=== PATIENT | male | born 1945 | race Caucasian/White ===

== ENCOUNTER 2018-06-19 16:57 | Emergency (ER) | payer OTHER ==
[~2018-06-19] VITALS: Ht 167.6 cm; Wt 90.7 kg
[~2018-06-19 16:57] MED LIST: ENABLEX15 MG PO; FINASTERIDE5 MG; KEFLEX500 MG PO; LISINOPRIL20 MG PO; MEGESTROL40 MG/1 M1 PO; NORCO 5-325 TA1 EACH PO; NORVASC 5 MG TAB5 MG PO; TAMSULOSIN HCL0.4 M1 PO; TRIAMTERENE-HC1 EAC1 PO; URINOZINC; URINOZINC PROS100 MG
[2018-06-19] MEDS ORDERED: NEXIUM40 MG PO (17:21)
[2018-06-19] MEDS ORDERED: CRESTOR10 MG PO (17:21)
[2018-06-19] MEDS ORDERED: ALLOPURINOL 10100 M1 PO (17:22)
[2018-06-19] MEDS ORDERED: MAXZIDE-25 MG1 EACH PO (17:22)
[2018-06-19 18:01] VITALS: BP 164/90
== END 2018-06-19 18:02 | disposition home or self-care (01) ==
LOC: M.ERS 16:57
DX: S01.01XA Laceration without foreign body of scalp, initial encounter (principal); I10 Essential (primary) hypertension; N40.0 Benign prostatic hyperplasia without lower urinary tract symptoms; Z85.46 Personal history of malignant neoplasm of prostate; Z88.0 Allergy status to penicillin; Z88.2 Allergy status to sulfonamides; Z88.5 Allergy status to narcotic agent; Z88.8 Allergy status to other drugs, medicaments and biological substances; W19.XXXA Unspecified fall, initial encounter; Y93.89 Activity, other specified; Y92.89 Other specified places as the place of occurrence of the external cause; Y99.8 Other external cause status

== ENCOUNTER 2018-06-26 18:13 | Emergency (ER) | payer OTHER ==
[~2018-06-26] VITALS: Ht 167.6 cm; Wt 95.7 kg
[~2018-06-26 18:13] MED LIST changes: +ALLOPURINOL 10100 M1 PO; +CRESTOR10 MG PO; +MAXZIDE-25 MG1 EACH PO; +NEXIUM40 MG PO
[2018-06-26 18:25] VITALS: BP 147/88
== END 2018-06-26 18:47 | disposition home or self-care (01) ==
LOC: M.ERS 18:13
DX: S01.81XD Laceration without foreign body of other part of head, subsequent encounter (principal); I10 Essential (primary) hypertension; Z88.6 Allergy status to analgesic agent; Z88.0 Allergy status to penicillin; Z88.2 Allergy status to sulfonamides; Z88.8 Allergy status to other drugs, medicaments and biological substances; Z85.46 Personal history of malignant neoplasm of prostate; X58.XXXD Exposure to other specified factors, subsequent encounter

== ENCOUNTER 2019-12-02 14:57 | Inpatient (IN) | payer OTHER ==
[~2019-12-02] VITALS: Ht 167.6 cm; Wt 97.1 kg
[2019-12-02 15:07] VITALS: BP 148/82
[2019-12-02 15:29] LABS: ABSOLUTE EOSINOPHILS 0.4 thou/uL (0.0-0.7); ABSOLUTE LYMPHOCYTES 1.2 thou/uL (0.8-5.3); ABSOLUTE MONOCYTES 0.5 thou/uL (0.0-1.2); ABSOLUTE NEUTROPHILS 3.7 thou/uL (1.6-8.1); BASOPHILS 0.7 %; EOSINOPHILS 6.2 %; HEMATOCRIT 40.9 % (42.0-52.0); HEMOGLOBIN 14.2 gm/dL (14.0-18.0); LYMPHOCYTES 21.2 %; MCH 32.9 pg (26.0-34.0); MCHC 34.6 g/dL (28.0-37.0); MONOCYTES 8.5 %; MPV 10.2 fl. (7.2-11.1); NUCLEATED RBCS 0 /100WBC; PLATELET COUNT* 188 thou/uL (150-400); POLYS 63.4 %; RBC 4.31 mil/uL (4.50-6.00); RDW-CV 13.5 % (10.5-14.5); WBC 5.8 thou/uL (4.0-11.0)
[2019-12-02 15:34] LABS: BE 1.2 mmol/L (-2 to +3); PCO2 39.5 mmHg (35.0-45.0); PO2 98.9 mmHg (75.0-100.0); pH 7.428 (7.340-7.450)
[2019-12-02 15:39] LABS: APTT 27.3 Seconds (25.0-31.3); CALCIUM 8.4 mg/dL (8.5-10.1); INR 1.1; POTASSIUM 4.1 mmol/L (3.5-5.1)
[2019-12-02 15:49] LABS: ALBUMIN 3.2 g/dL (3.4-5.0); TOTAL BILIRUBIN 0.3 mg/dL (<0.1-1.0); TOTAL PROTEIN 6.8 g/dL (6.4-8.2)
[2019-12-02 17:41] VITALS: BP 161/90
[2019-12-02 18:40] VITALS: BP 164/100
--- NOTE | 2019-12-02 19:03 | NUR ---
PT ADMITTED TO ROOM 105 AROUND 1800. TELE SR WITH BBB. VSS. PT HAS COVID PENDING TEST. IN ENHANCED PRECAUTIONS. NO CONCERNS AT THIS TIME. CLWR. WCTM.
[2019-12-02 20:15] VITALS: BP 170/85
[2019-12-02] MEDS ORDERED: NORVASC 2.5 MG2.5 M1 PO (20:36)
[2019-12-02] MEDS ORDERED: URINOZINC PROS1 EACH PO (20:38)
[2019-12-02] MEDS ORDERED: FAMOTIDINE 20 M20 MG PO (21:04)
[2019-12-02] MEDS ORDERED: COZAAR 25 MG TA25 M2 PO (21:05)
[2019-12-02] MEDS ORDERED: CLARITIN10 M1 PO (21:06)
[2019-12-03] VITALS: BP 160/87
[2019-12-03 04:00] VITALS: BP 150/90
[2019-12-03 04:11] LABS: ALBUMIN 3.1 g/dL (3.4-5.0); CALCIUM 8.2 mg/dL (8.5-10.1); CREATININE 1.2 mg/dL (0.6-1.3); PHOSPHORUS* 3.5 mg/dL (2.5-4.9); POTASSIUM 3.8 mmol/L (3.5-5.1)
--- NOTE | 2019-12-03 04:39 | NUR ---
PT SLEPT MOST OF SHIFT. ASSESSMENT DOCUMENTED. MEDS GIVEN PER E-MAR. IV PATNET. NO REPORTS OF PAIN OR NAUSEA THIS SHIFT. PT ON 2L NC THIS SHIFT. PT EDUCATED TO VOID PER URINAL AND REPORT OUTPUT. ISOLATION MAINTAINED. WILL CONTINUE WITH PLAN OF CARE.
[2019-12-03 05:54] LABS: PLATELET COUNT* ND thou/uL (150-400)
[2019-12-03 05:59] LABS: RBC ND mil/uL (4.50-6.00)
[2019-12-03 06:00] LABS: HEMATOCRIT ND % (42.0-52.0); HEMOGLOBIN ND gm/dL (14.0-18.0)
[2019-12-03 06:01] LABS: MCV ND fL (80.0-100.0)
[2019-12-03 06:03] LABS: MCH ND pg (26.0-34.0); MCHC ND g/dL (28.0-37.0)
[2019-12-03 06:04] LABS: RDW-CV ND % (10.5-14.5)
[2019-12-03 06:05] LABS: MPV ND fl. (7.2-11.1); WBC ND thou/uL (4.0-11.0)
[2019-12-03 06:33] LABS: HEMATOCRIT 43.4 % (42.0-52.0); HEMOGLOBIN 14.8 gm/dL (14.0-18.0); MCH 32.4 pg (26.0-34.0); MCHC 34.1 g/dL (28.0-37.0); MCV 95.2 fL (80.0-100.0); MPV 11.2 fl. (7.2-11.1); RBC 4.56 mil/uL (4.50-6.00); RDW-CV 13.9 % (10.5-14.5)
[2019-12-03 07:09] LABS: CHOLESTEROL 146 mg/dL (<200); HDL CHOLESTEROL 33 mg/dL (>40); LDL CHOLESTEROL 97 mg/dL (<100); TC:HDL 4.4 Ratio (Not establshd); TRIGLYCERIDE 81 mg/dL (<150); VLDL 16 mg/dL (<40)
[2019-12-03 07:11] LABS: SERUM ASSESSMENT Clear
[2019-12-03 07:27] LABS: AMP/METHAMP Negative (Negative); BARBITURATES Negative (Negative); BENZODIAZEPINES Negative (Negative); COCAINE Negative (Negative); METHADONE Negative (Negative); OPIATES Negative (Negative); PCP Negative (Negative); THC Negative (Negative)
[2019-12-03 09:26] VITALS: BP 138/76
[2019-12-03 12:00] VITALS: BP 146/83
--- NOTE | 2019-12-03 13:00 | 2DMMODE ---
[place] [address] 2 D/M-MODE ECHOCARDIOGRAM Name: ALEXIS SWANSON Room: [address] IN [facility]#: [id number] Admission: 12/02/19 Attend Phys: Stephanie rincon Sa Discharge: Date of : 41 Date of Service: 12/03/19 1259 Report #: [id number] THIS REPORT FOR: cc: Fadi Mohan MD, Khanh MD Holkins,Tito Klein MD [facility] ~ APPROVED REPORT Study performed: 12/03/2019 10:56:59 EXAM: Comprehensive 2D, Doppler, and color-flow Echocardiogram Patient Location: In-Patient Room #: [facility] Status: routine BSA: 2.06 HR: 57 bpm BP: 150/90 mmHg Rhythm: NSR Other Information Study Quality: Good Indications Dyspnea 2D Dimensions IVSd: 16.57 (7-11mm) LVOT Diam: 20.14 (18-24mm) LVDd: 48.98 mm PWd: 12.62 (7-11mm) Ascending Ao: 44.58 (22-36mm) LVDs: 29.02 (25-40mm) Aortic Root: 37.04 mm Volumes Left Atrial Volume (Systole) LA ESV Index: 28.70 mL/m2 Aortic Valve AoV Peak Fawad.: 2.07 m/s AO Peak Gr.: 17.13 mmHg LVOT Max P.84 mmHg AO Mean Gr.: 9.00 mmHg LVOT Mean P.25 mmHg LVOT Max V: 1.31 m/s AO V2 VTI: 38.96 cm LVOT Mean V: 0.82 m/s ANA (VTI): 2.36 cm2 LVOT V1 VTI: 28.89 cm AI Lyon: 2.31 m/s2 [place] [address] 2 D/M-MODE ECHOCARDIOGRAM Name: ALEXIS SWANSON Room: [address] IN M.R.#: [id number] Admission: 12/02/19 Attend Phys: Stephanie rincon Sa Discharge: Date of : 41 Date of Service: 12/03/19 1259 Report #: [id number] AI PHT: 492.03 ms Mitral Valve E/A Ratio: 0.75 MV Decel. Time: 165.76 ms MV E Max Fawad.: 0.72 m/s MV PHT: 48.07 ms MVA (PHT): 4.58 cm2 TDI E/Lateral E': 10.29 E/Medial E': 10.29 Medial E' Fawad.: 0.07 m/s Lateral E' Fawad.: 0.07 m/s Pulmonary Valve PV Peak Fawad.: 1.00 m/s PV Peak Gr.: 3.99 mmHg Left Ventricle The left ventricle is normal size. There is normal LV segmental wall motion. Moderate concentric left ventricular hypertrophy. Left ventricular systolic function is normal. The left ventricular ejection fraction is within the normal range. LVEF is 55-60%. Grade I - abnormal relaxation pattern. Right Ventricle The right ventricle is normal size. The right ventricular systolic function is normal. Atria The left atrium size is normal. The right atrium size is normal. Aortic Valve Mild aortic valve sclerosis. Mild aortic regurgitation. No hemodynamically significant valvular aortic stenosis. Mitral Valve The mitral valve is normal in structure. Trace mitral regurgitation. No evidence of mitral valve stenosis. Tricuspid Valve The tricuspid valve is normal in structure. Unable to assess PA pressure. Trace tricuspid regurgitation. Pulmonic Valve The pulmonary valve is normal in structure. [place] [address] 2 D/M-MODE ECHOCARDIOGRAM Name: ALEXIS SWANSON Room: [address] IN [facility]#: [id number] Admission: 12/02/19 Attend Phys: Stephanie rincon Sa Discharge: Date of : 41 Date of Service: 12/03/19 1259 Report #: [id number] valvular regurgitation. Great Vessels The aortic root is normal in size. IVC is normal in size and collapses >50% with inspiration. Pericardium There is no pericardial effusion. <Conclusion> The left ventricle is normal size. Moderate concentric left ventricular hypertrophy. Left ventricular systolic function is normal. The left ventricular ejection fraction is within the normal range. LVEF is 55-60%. Grade I - abnormal relaxation pattern. The right ventricle is normal size. The left atrium size is normal. Mild aortic valve sclerosis. Mild aortic regurgitation. No hemodynamically significant valvular aortic stenosis. The mitral valve is normal in structure. The tricuspid valve is normal in structure. IVC is normal in size and collapses >50% with inspiration. There is no pericardial effusion. There is normal LV segmental wall motion. <ELECTRONICALLY SIGNED> By: Tito Galeana MD, FACC 12/03/19 1259 1259 1259 Tito Galeana MD, FACC /INF
--- NOTE | 2019-12-03 13:06 | EKG ---
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
--- NOTE | 2019-12-03 13:44 | NUR ---
CM ASSESSMENT: CM SPOKE TO THE PT TO DISCUSS HIS HOME SITUATION, MOBILITY AND COGNITION, AND TO INFORM OF THE ROLE OF CM. 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 PT RESIDES AT HOME WITH SPOUSE. PT DOES NOT OWN OR USE ANY DME. PT HAS 0 HX OF HH OR SNF, AND PLANS TO RETURN HOME AT D/C. CM WILL REMAIN AVAILABLE TO FOLLOW AND ASSIST WITH DISCHARGE PLANNING NEEDS.
[2019-12-03 16:00] VITALS: BP 153/82
--- NOTE | 2019-12-03 16:46 | NUR ---
CONTINUE CURRANT CARE. PT HAD ECHO TODAY AND WAS UP AROUND ROOM WITH NO C/O PAIN OR SOA. WILL CONTINUE TO ASSESS.
[2019-12-03 20:00] VITALS: BP 153/87
[2019-12-04 02:07] LABS: GLYCOHEMOGLOBIN (HGB A1C) 5.6 % (4.8-5.6)
[2019-12-04 05:37] LABS: HEMATOCRIT 42.5 % (42.0-52.0); HEMOGLOBIN 14.8 gm/dL (14.0-18.0); MCH 32.9 pg (26.0-34.0); MCHC 34.9 g/dL (28.0-37.0); MCV 94.2 fL (80.0-100.0); MPV 10.2 fl. (7.2-11.1); RBC 4.51 mil/uL (4.50-6.00); RDW-CV 13.6 % (10.5-14.5); WBC 7.6 thou/uL (4.0-11.0)
[2019-12-04 05:44] LABS: ALBUMIN 3.1 g/dL (3.4-5.0); CALCIUM 8.2 mg/dL (8.5-10.1); CREATININE 1.1 mg/dL (0.6-1.3); PHOSPHORUS* 3.1 mg/dL (2.5-4.9); POTASSIUM 3.4 mmol/L (3.5-5.1)
[2019-12-04 05:59] VITALS: BP 142/88
[2019-12-04 09:30] VITALS: BP 141/64
[2019-12-04] MEDS ORDERED: LEVAQUIN 750 M750 MG PO (11:53)
[2019-12-04] MEDS ORDERED: POTASSIUM20 PO (11:54)
[2019-12-04] MEDS ORDERED: LASIX 40 MG TAB40 MG PO (11:54)
--- NOTE | 2019-12-04 20:05 | NUR ---
I ASSUMED CARE OF THE PATIENT AT 0700. HE IS ALERT AND ORIENTED X4 AND IS UP AD LEXY. BED IS IN THE LOW LOCKED POSITION AND CALL LIGHT IS IN REACH. HOURLY ROUNDING IS COMPLETED AND PATIENT NEEDS ARE MET. PAIN IS DENIED. 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 FOLLOWUP APPOINTMENT IS WITH [facility] ON 12/07. PATIENT UNDERSTANDS DISCHARGE. SCRIPTS ARE SENT TO PHARMACY. WILL CONTINUE TO MONITOR.
== END 2019-12-04 17:55 | disposition home or self-care (01) | DRG 292 ==
LOC: M.ERS 14:57 → M.ORTHSURG 16:47 → M.TBA-ER 16:47 → M.ORTHSURG 17:53
PROVIDERS: Emergency Medicine; ADMIT Family Medicine
DX: I11.0 Hypertensive heart disease with heart failure (principal); J98.11 Atelectasis; R79.89 Other specified abnormal findings of blood chemistry; K21.9 Gastro-esophageal reflux disease without esophagitis; M10.9 Gout, unspecified; I77.819 Aortic ectasia, unspecified site; J40 Bronchitis, not specified as acute or chronic; I50.33 Acute on chronic diastolic (congestive) heart failure; N40.0 Benign prostatic hyperplasia without lower urinary tract symptoms; Z79.899 Other long term (current) drug therapy; Z87.01 Personal history of pneumonia (recurrent); Z88.5 Allergy status to narcotic agent; Z88.0 Allergy status to penicillin; Z88.2 Allergy status to sulfonamides; Z91.048 Other nonmedicinal substance allergy status; Z03.818 Encounter for observation for suspected exposure to other biological agents ruled out

== ENCOUNTER → 2020-01-23 | Outpatient (CLI) | payer OTHER ==
[~2020-01-23] MED LIST changes: +CLARITIN10 M1 PO; +COZAAR 25 MG TA25 M2 PO; +FAMOTIDINE 20 M20 MG PO; +LASIX 40 MG TAB40 MG PO; +LEVAQUIN 750 M750 MG PO; +NORVASC 2.5 MG2.5 M1 PO; +POTASSIUM20 PO; +URINOZINC PROS1 EACH PO
--- NOTE | 2020-01-23 16:00 | CARDNUC ---
[place] [address] CARDIAC NUCLEAR IMAGING REPORT Name: ALEXIS SWANSON Room: [facility]#: [id number] Admission: 01/23/20 Attend Phys: Maria Luisa Torres, Discharge: Date of : 41 Date of Service: 01/23/20 1559 Report #: [id number] THIS REPORT FOR: cc: Fadi Mohan MD, Khanh MD Liston, Michael J. MD [facility] ~ APPROVED REPORT Study performed: 01/23/2020 10:10:51 Exam: Nuclear Stress Test Indication: Troponin elevation, Chest pain, Dyspnea Patient Location: Out-Patient Stress Tech: Margot De Santiago Stress Nurse: Preeti Escalante RN Ht: 5 ft 6 in Wt: 201 lbs BSA: 2.00 m2 BMI: 32.43 Medical History Medical History: HTN, Hyperlipidemia, CHF Medications: losartan, lasix, potassium Allergies: ascorbic acid, beta jeannette, hydrocodone, penicillin, quinine, sulfa Cardiac Risk Factors: age, hyperlipidemia, hypertension Exercise History: Indeterminate Stress Test Details Stress Test: Pharmacologic stress testing performed using 0.4 mg of regadenoson per 5 mL given IV over 10 seconds. Reason for pharmacologic stress test: physical limitation. HR Resting HR: 62 bpm Max Heart Rate (APMHR): 143 bpm Max HR Achieved: 87 bpm Target HR (85% APMHR): 121 bpm % of APMHR: 60 Recovery HR: 78 bpm BP Resting BP: 154/84 mmHg Max BP: 193/99 mmHg ECG Resting ECG: Sinus Rhythm, [place] [address] CARDIAC NUCLEAR IMAGING REPORT Name: ALEXIS SWANSON Room: [facility]#: [id number] Admission: 01/23/20 Attend Phys: Maria Luisa Torres, Discharge: Date of : 41 Date of Service: 01/23/20 1559 Report #: [id number] Stress ECG: Sinus Rhythm, RBBB ST Change: None Arrhythmia: None Recovery ECG: Sinus Rhythm, RBBB Recovery ST Change: None Recovery Arrhythmia: None Clinical The patient tolerated Lexiscan infusion without significant cardiac symptoms. Nurse Comments pt unable to walk on tradmill due to sore knees Stress ECG Conclusion Baseline twelve-lead EKG shows sinus rhythm with right bundle branch block without significant ST segment abnormality. EKGs obtained during and post Lexiscan infusion show sinus rhythm with right bundle branch block. There were no significant ST segment changes when compared to baseline. NM EXAM: Myocardial Perfusion REST/STRESS Resting Data Rest SPECT myocardial perfusion imaging was performed in supine position 30 minutes following the intravenous injection of 9.8 mCi of Tc-99m Sestamibi. Time of rest injection: 08:25 The images were gated to evaluate regional wall motion and calculate left ventricular ejection fraction. Administration Route: IV Administration Site: Right AC Pharmacologic Stress Pharmacologic stress test was performed by injecting Regadenoson 0.4 mg IV push followed by the intravenous injection of 30.9 mCi of Tc-99m Sestamibi. Time of stress injection: 10:00 Administration Route: IV Administration Site: Right AC Heart Rate at time of stress injection: 87 bpm. Gated Stress SPECT was performed 45 minutes after stress injection. The images were gated to evaluate regional wall motion and calculate left ventricular ejection fraction. [place] [address] CARDIAC NUCLEAR IMAGING REPORT Name: SWANSONCARLO DECKERISHAN Lenz Room: [facility]#: [id number] Admission: 01/23/20 Attend Phys: Maria Luisa Torres, Discharge: Date of : 41 Date of Service: 01/23/20 1559 Report #: [id number] Study Quality Study: Good Study Data At rest, the left ventricular ejection fraction was 71%.. Post stress, the left ventricular ejection was 70%.. TID = 1.08. Perfusion There is a small in size moderate intensity reversible inferolateral apical defect suggestive of ischemia in this region. There were no other significant fixed or reversible defects identified. Nuclear Conclusion ECG Findings: negative for ischemia Clinical Findings: negative for ischemia Nuclear Findings: positive for ischemia Exercise Capacity: not assessed Left Ventricular Function: Preserved Risk Study: moderate Perfusion images suggest stress-induced ischemia of the inferolateral apex. Global LV systolic function is preserved. This is a moderate risk study. <Conclusion> Baseline twelve-lead EKG shows sinus rhythm with right bundle branch block without significant ST segment abnormality. EKGs obtained during and post Lexiscan infusion show sinus rhythm with right bundle branch block. There were no significant ST segment changes when compared to baseline. <ELECTRONICALLY SIGNED> By: Gama Javier MD, [facility] 01/23/20 1559 1559 1559 Gama Javier MD, FACC /INF
== END ==
LOC: M.NUC 12-08 16:20
DX: I45.10 Unspecified right bundle-branch block (principal); R79.89 Other specified abnormal findings of blood chemistry; R07.89 Other chest pain; I10 Essential (primary) hypertension; E78.5 Hyperlipidemia, unspecified; I50.9 Heart failure, unspecified; Z79.899 Other long term (current) drug therapy; Z88.2 Allergy status to sulfonamides; Z88.0 Allergy status to penicillin

== ENCOUNTER 2020-02-15 12:12 | Emergency (ER) | payer OTHER ==
[~2020-02-15] VITALS: Ht 167.6 cm; Wt 90.7 kg
[2020-02-15] MEDS ORDERED: NORVASC 2.5 MG2.5 M1 PO (12:26)
[2020-02-15] MEDS ORDERED: NORCO 5-325 TA1 EAC1 PO (13:30)
[2020-02-15] MEDS ORDERED: KEFLEX500 M1 PO (13:31)
[2020-02-15 14:00] VITALS: BP 152/82
== END 2020-02-15 14:00 | disposition home or self-care (01) ==
LOC: M.ERS 12:12
DX: S62.501A Fracture of unspecified phalanx of right thumb, initial encounter for closed fracture (principal); S61.011A Laceration without foreign body of right thumb without damage to nail, initial encounter; I10 Essential (primary) hypertension; Z88.5 Allergy status to narcotic agent; Z88.0 Allergy status to penicillin; Z88.2 Allergy status to sulfonamides; Z88.8 Allergy status to other drugs, medicaments and biological substances; Z79.899 Other long term (current) drug therapy; Z85.46 Personal history of malignant neoplasm of prostate; W23.0XXA Caught, crushed, jammed, or pinched between moving objects, initial encounter; Y93.89 Activity, other specified; Y92.69 Other specified industrial and construction area as the place of occurrence of the external cause; Y99.9 Unspecified external cause status

== ENCOUNTER → 2020-09-24 | Outpatient (CLI) | payer OTHER ==
[~2020-09-24] MED LIST changes: +KEFLEX500 M1 PO; +NORCO 5-325 TA1 EAC1 PO
[2020-09-24 10:40] LABS: ABSOLUTE EOSINOPHILS 0.3 thou/uL (0.0-0.7); ABSOLUTE LYMPHOCYTES 1.2 thou/uL (0.8-5.3); ABSOLUTE MONOCYTES 0.6 thou/uL (0.0-1.2); ABSOLUTE NEUTROPHILS 5.1 thou/uL (1.6-8.1); BASOPHILS 0.4 %; EOSINOPHILS 4.3 %; HEMOGLOBIN 14.8 gm/dL (14.0-18.0); MCH 31.8 pg (26.0-34.0); MCHC 33.6 g/dL (28.0-37.0); MCV 94.7 fL (80.0-100.0); MONOCYTES 8.7 %; MPV 9.5 fl. (7.2-11.1); NUCLEATED RBCS 0 /100WBC; PLATELET COUNT* 229 thou/uL (150-400); POLYS 69.6 %; RBC 4.65 mil/uL (4.50-6.00); RDW-CV 14.1 % (10.5-14.5); WBC 7.3 thou/uL (4.0-11.0)
[2020-09-24 11:09] LABS: ALBUMIN 3.5 g/dL (3.4-5.0); CALCIUM 8.9 mg/dL (8.5-10.1); CREATININE 1.1 mg/dL (0.6-1.3); POTASSIUM 4.4 mmol/L (3.5-5.1); TOTAL BILIRUBIN 0.4 mg/dL (<0.1-1.0); TOTAL PROTEIN 7.4 g/dL (6.4-8.2)
== END ==
LOC: M.LAB 10:06
PROVIDERS: ATTEND Nurse Practitioner
DX: I50.32 Chronic diastolic (congestive) heart failure (principal); R53.83 Other fatigue; R60.0 Localized edema

== ENCOUNTER → 2020-10-11 | Outpatient (CLI) | payer OTHER ==
--- NOTE | 2020-10-11 15:42 | 2DMMODE ---
[place] [address] 2 D/M-MODE ECHOCARDIOGRAM Name: ALEXIS SWANSON Room: [facility]#: [id number] Admission: 10/11/20 Attend Phys: Maria Luisa Torres, Discharge: Date of : 41 Date of Service: 10/11/20 1541 Report #: [id number] THIS REPORT FOR: cc: Fadi Mohan MD, Khanh MD Holkins,Tito Klein MD [facility] ~ APPROVED REPORT Study performed: 10/11/2020 08:01:47 EXAM: Comprehensive 2D, Doppler, and color-flow Echocardiogram Patient Location: Out-Patient BSA: 2.01 HR: 72 bpm BP: 140/80 mmHg Other Information Study Quality: Good Indications Congestive Heart Failure 2D Dimensions IVSd: 15.76 (7-11mm) LVOT Diam: 20.35 (18-24mm) LVDd: 43.83 mm PWd: 15.18 (7-11mm) Ascending Ao: 35.31 (22-36mm) LVDs: 28.02 (25-40mm) Aortic Root: 34.81 mm Volumes Left Atrial Volume (Systole) LA ESV Index: 17.60 mL/m2 Aortic Valve AoV Peak Fawad.: 1.76 m/s AO Peak Gr.: 12.39 mmHg LVOT Max P.45 mmHg AO Mean Gr.: 8.19 mmHg LVOT Mean P.83 mmHg LVOT Max V: 0.93 m/s AO V2 VTI: 32.42 cm LVOT Mean V: 0.62 m/s ANA (VTI): 1.75 cm2 LVOT V1 VTI: 17.43 cm TDI Medial E' Fawad.: 0.05 m/[place] [address] 2 D/M-MODE ECHOCARDIOGRAM Name: ALEXIS SWANSON Room: [facility]#: [id number] Admission: 10/11/20 Attend Phys: Maria Luisa Torres, Discharge: Date of : 41 Date of Service: 10/11/20 1541 Report #: [id number] Lateral E' Fawad.: 0.09 m/s Pulmonary Valve PV Peak Fawad.: 0.97 m/s PV Peak Gr.: 3.78 mmHg Left Ventricle The left ventricle is normal size. There is normal LV segmental wall motion. Moderate concentric left ventricular hypertrophy. Left ventricular systolic function is normal. The left ventricular ejection fraction is within the normal range. LVEF is 60-65%. This study is not technically sufficient to allow evaluation of the LV diastolic function. Right Ventricle The right ventricle is normal size. The right ventricular systolic function is normal. Atria The left atrium size is normal. The right atrium size is normal. Aortic Valve Mild aortic valve sclerosis. Mild aortic regurgitation. There is no aortic valvular stenosis. Mitral Valve The mitral valve is normal in structure. There is no mitral valve regurgitation noted. No evidence of mitral valve stenosis. Tricuspid Valve The tricuspid valve is normal in structure. There is no tricuspid valve regurgitation noted. Pulmonic Valve The pulmonary valve is normal in structure. There is no pulmonic valvular regurgitation. Great Vessels The aortic root is normal in size. IVC is normal in size and collapses >50% with inspiration. Pericardium There is no pericardial effusion. <Conclusion> The [place] [address] 2 D/M-MODE ECHOCARDIOGRAM Name: ALEXIS SWANSON Room: [facility]#: [id number] Admission: 10/11/20 Attend Phys: Maria Luisa Torres, Discharge: Date of : 41 Date of Service: 10/11/20 1541 Report #: [id number] Moderate concentric left ventricular hypertrophy. Left ventricular systolic function is normal. The left ventricular ejection fraction is within the normal range. LVEF is 60-65%. The right ventricle is normal size. The left atrium size is normal. Mild aortic valve sclerosis. Mild aortic regurgitation. There is no aortic valvular stenosis. The mitral valve is normal in structure. The tricuspid valve is normal in structure. IVC is normal in size and collapses >50% with inspiration. There is no pericardial effusion. There is normal LV segmental wall motion. <ELECTRONICALLY SIGNED> By: Tito Galeana MD, [facility] 10/11/20 1541 1541 1541 Tito Galeana MD, FACC /INF
== END ==
LOC: M.CRD 08:00
PROVIDERS: ATTEND Nurse Practitioner
DX: I50.32 Chronic diastolic (congestive) heart failure (principal); R53.83 Other fatigue; I35.1 Nonrheumatic aortic (valve) insufficiency

== ENCOUNTER 2021-06-05 20:09 | Emergency (ER) | payer OTHER ==
[~2021-06-05] VITALS: Ht 167.6 cm; Wt 87.1 kg
[2021-06-05] MEDS ORDERED: TRIAMTERENE-HC1 EAC1 PO (20:20)
[2021-06-05 21:54] VITALS: BP 154/70
== END 2021-06-05 21:55 | disposition home or self-care (01) ==
LOC: M.ERS 20:09
DX: S01.01XA Laceration without foreign body of scalp, initial encounter (principal); I10 Essential (primary) hypertension; Z88.0 Allergy status to penicillin; Z88.2 Allergy status to sulfonamides; Z91.048 Other nonmedicinal substance allergy status; Z88.8 Allergy status to other drugs, medicaments and biological substances; W22.8XXA Striking against or struck by other objects, initial encounter; Y93.89 Activity, other specified; Y92.89 Other specified places as the place of occurrence of the external cause; Y99.8 Other external cause status